=== PATIENT | female | born 1965 | race Two or more races ===

== ENCOUNTER 2022-12-05 13:20 | Emergency (ER) | payer OTHER ==
[~2022-12-05] VITALS: Ht 160 cm; Wt 102.7 kg
[2022-12-05 14:06] LABS: Basophils # (auto) 0.1 10 ^3/uL (0-0.2); Basophils % (auto) 0.9 % (0.0-2.0); Eosinophils # (auto) 0.1 10 ^3/uL (0-0.8); Eosinophils % (auto) 1.2 % (0.0-7.0); Hematocrit 44.3 % (36.0-46.0); Hemoglobin 14.4 g/dL (12.2-16.2); Lymphocytes # (auto) 1.1 10 ^3/uL (0.4-5.4); Lymphocytes % (auto) 12.9 % (10.0-50.0); Mean Corpuscular Hemoglobin 27.5 pg (28.0-32.0); Mean Corpuscular Hgb Conc. 32.6 g/dL (32.0-36.0); Mean Corpuscular Volume 84.4 fL (80.0-100.0); Monocytes # (auto) 0.4 10 ^3/uL (0-1.3); Neutrophils # (auto) 7.1 10 ^3/uL (1.6-8.6); Nucleated Red Blood Cells % 0.1 %; Red Blood Cells 5.25 10^6/uL (4.0-5.20); Red Cell Distribution Width 15.3 % (11.8-14.3); White Blood Cell 8.8 10^3/uL (4.4-10.8)
[2022-12-05 14:21] LABS: INR 1.05 (0.9-1.15); Partial Thromboplastin Time 25.7 sec (24.6-33.4)
[2022-12-05 14:24] LABS: Albumin 3.8 g/dL (3.4-5.0); BUN/Creatinine Ratio 16.8 (10.0-20.0); Calcium 9.4 mg/dL (8.5-10.1); Potassium 4.5 mmol/L (3.5-5.1)
[2022-12-05 14:27] LABS: Bilirubin, Total 0.3 mg/dL (0.2-1.0); Total Protein 7.9 g/dL (6.4-8.2)
[2022-12-05] MEDS ORDERED: SODIUM CHLORIDE 0.9% 500 ML IV ONE (14:45)
[2022-12-05] MEDS ORDERED: fentaNYL CITRATE 100 MCG/2 ML VL IV ONE ×3 (14:45→20:15)
[2022-12-05] MEDS ORDERED: IOHEXOL 350 MG/ML 100ML IJ ONE (15:20)
[2022-12-05 20:54] VITALS: BP 141/59
[2022-12-05] MEDS ORDERED: ceFAZolin 1GM/50ML 50 ML IV ONE (22:00)
== END 2022-12-05 15:53 | disposition short-term general hospital (02) ==
LOC: ER 13:20 → EDBD 13:20 → ER 15:53
DX: S72.412A Displaced unspecified condyle fracture of lower end of left femur, initial encounter for closed fracture (principal); Z88.2 Allergy status to sulfonamides; W18.09XA Striking against other object with subsequent fall, initial encounter; Y93.89 Activity, other specified; Y92.89 Other specified places as the place of occurrence of the external cause; Y99.8 Other external cause status
CPT/HCPCS: 36415; 73706; 80053; 85025; 85610; 85730; 96361; 96374; 96376; 99285; J3010; J7040; Q9967